=== PATIENT | female | born 1960 | race Caucasian/White ===

== ENCOUNTER 2024-08-16 17:50 | Emergency (ER) | payer OTHER ==
[~2024-08-16] VITALS: Ht 149.9 cm; Wt 59.0 kg
[2024-08-16] MEDS ORDERED: MORPHINE SULFATE 2 MG/1 ML DISP.SYRIN ONE ×2 (18:13→18:17)
[2024-08-16] MEDS ORDERED: KETOROLAC TROMETHAMINE 30 MG INJ ONE (18:14)
[2024-08-16] MEDS ORDERED: ONDANSETRON 4 MG/2 ML VIAL ONE (18:14)
[2024-08-16 18:17] LABS: BASOPHILS % (AUTO) 0.4 % (0.0-2.0); EOSINOPHILS # (AUTO) 0.1 K/uL (0.0-0.7); EOSINOPHILS % (AUTO) 0.7 % (0.0-7.0); HEMATOCRIT 40.6 % (31.2-41.9); LYMPHOCYTES # (AUTO) 2.7 K/uL (0.8-4.8); LYMPHOCYTES % (AUTO) 37.8 % (20.5-51.5); MEAN CORPUSCULAR HEMOGLOBIN 30.2 uug (24.7-32.8); MEAN CORPUSCULAR HGB CONC 34 g/dL (32.3-35.6); MEAN CORPUSCULAR VOLUME 87.9 fL (75.5-95.3); MONOCYTES # (AUTO) 0.4 K/uL (0.1-1.30); MONOCYTES % (AUTO) 6.3 % (0.0-11.0); NEUTROPHILS # (AUTO) 3.9 K/uL (1.8-8.9); NEUTROPHILS % (AUTO) 54.8 % (38.5-71.5); PLATELET COUNT (AUTO) 262 K/uL (179-408); RED BLOOD CELL COUNT(AUTO) 4.62 MIL/uL (3.63-4.92); RED CELL DISTRIBUTION WIDTH 14.4 % (12.3-17.7); WHITE BLOOD COUNT (AUTO) 7.1 K/uL (3.8-11.8)
[2024-08-16 18:18] LABS: DIFFERENTIAL COMMENT 1
[2024-08-16 18:23] LABS: CALCIUM 9.1 mg/dL (8.5-10.1); CREATININE 0.8 mg/dL (0.6-1.3)
[2024-08-16] MEDS: IV NS 1000 ML 1,000 ML IV ONE (18:28)
[2024-08-16] MEDS: ONDANSETRON 4 MG/2 ML VIAL IV ONE (18:28)
[2024-08-16] MEDS: MORPHINE SULFATE 2 MG/1 ML DISP.SYRIN IV ONE (18:28)
[2024-08-16] MEDS: KETOROLAC TROMETHAMINE 30 MG INJ IVP ONE (18:29)
[2024-08-16] MEDS ORDERED: HYDR-3980 PO (18:32)
[2024-08-16] MEDS ORDERED: BACL5TAB PO (18:32)
[2024-08-16] MEDS ORDERED: MELO15TA13 PO (18:32)
[2024-08-16 20:45] VITALS: BP 150/98; TEMP 98; O2SAT 99
== END 2024-08-16 20:46 | disposition home or self-care (01) ==
LOC: ER 17:50
DX: M54.2 Cervicalgia (principal); M25.512 Pain in left shoulder; M43.6 Torticollis
CPT/HCPCS: 99285; 96374; 72125; 96361; 96375; 80048; 85025; 86140; 36415; J1885; J2405; J2270 ×2; J7040; A4606; A4663